=== PATIENT | male | born 1980 | race African-American/Black ===

== ENCOUNTER 2017-04-01 16:48 | Emergency (ER) | payer MEDICAID, OTHER ==
[~2017-04-01] VITALS: Ht 170.2 cm; Wt 74.8 kg
[2017-04-01 17:06] VITALS: BP 145/91
[2017-04-01] MEDS ORDERED: CEPHALEXIN500 MG ORAL (17:37)
[2017-04-01] MEDS ORDERED: NAPROXEN500 M1 ORAL (17:37)
[2017-04-01] MEDS ORDERED: NORCO 10-325 T1 EACH ORAL (17:37)
[2017-04-01] MEDS ORDERED: ROBAXIN-750750 MG PO (17:37)
[2017-04-01 17:45] VITALS: BP 145/91
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
== END 2017-04-01 17:50 | disposition home or self-care (01) ==
LOC: EMR 17:47
DX: S80.861A Insect bite (nonvenomous), right lower leg, initial encounter (principal); L08.9 Local infection of the skin and subcutaneous tissue, unspecified; W57.XXXA Bitten or stung by nonvenomous insect and other nonvenomous arthropods, initial encounter; Y92.410 Unspecified street and highway as the place of occurrence of the external cause; G89.29 Other chronic pain; M54.9 Dorsalgia, unspecified
CPT/HCPCS: 99284